=== PATIENT | male | born 1985 | race Caucasian/White ===

== ENCOUNTER 2019-08-22 23:38 | Emergency (ER) | payer MEDICAID ==
[~2019-08-22] VITALS: Ht 180.3 cm; Wt 111.1 kg
[2019-08-22 23:38] VITALS: BP 120/91
[2019-08-23] MEDS ORDERED: ALBUTEROL 0.083% 2.5 MG/3 ML NEBU INH ONE (00:45)
[2019-08-23 01:25] VITALS: BP 120/91
== END 2019-08-23 01:25 | disposition home or self-care (01) ==
LOC: MED 23:38
DX: J06.9 Acute upper respiratory infection, unspecified (principal); Z59.0 Homelessness
CPT/HCPCS: 71045; 94640; 94760; 99283; J7613; Q0092